=== PATIENT | male | born 1950 | race Caucasian/White ===

== ENCOUNTER 2017-08-17 11:11 | Observation (INO) | payer MEDICARE, OTHER ==
[~2017-08-17] VITALS: Ht 167.6 cm; Wt 122.2 kg
[2017-08-17] VITALS (8 sets, daily range): BP systolic 111–151; BP diastolic 73–95; PULSE 89–131; RESP 16–20; TEMP 98.4–99; O2SAT 93–95
[~2017-08-17 11:11] MED LIST: APIX5TAB PO; ATOR20TA15 PO; CARBSOL EACH EYE; COZA100T PO; DILT0.05 PO; DOXA1TAB35 PO; HYDR25TA5 PO; LOSA100T PO; MULT10CA PO; SAW450CA2 PO; TRAV0.00 EACH EYE
[2017-08-17] MEDS ORDERED: LACTATED RINGER'S 1000 ML IV PRN (12:00)
[2017-08-17] MEDS ORDERED: CHLORHEXIDINE GLUCONATE 2 % 1 PACK (2 CLOTHS) TOPICAL PRN (12:00)
[2017-08-17] MEDS ORDERED: POVIDONE IODINE 5% (ANTISEPSIS KIT) 4 APPLICATIONS EACH NARE PRN (12:00)
[2017-08-17] MEDS ORDERED: SODIUM CHLORID 0.9% 500 ML IV PRN (12:00)
[2017-08-17] MEDS ORDERED: NS 1000 ML IV SCH (12:00)
[2017-08-17] MEDS ORDERED: MUPIROCIN 2% OINT 1 APPLIC/GM SYR NASAL SCH (12:00)
[2017-08-17] MEDS ORDERED: METOPROLOL TARTRATE 25 MG TAB PO PRN (12:00)
[2017-08-17] MEDS ORDERED: ceFAZolin 2 GM PREMIX 50 ML IV SCH (12:00)
[2017-08-17] MEDS ORDERED: INSULIN HUMAN REGULAR 1,000 UNITS/10 ML VIAL SQ PRN (12:00)
[2017-08-17] MEDS ORDERED: VANCOMYCIN 1000 MG/NS 250 ML IV SCH ×2 (12:00)
[2017-08-17 12:13] LABS: BASOPHIL % 0.6 % (0.0-2.0); EOSINOPHIL # 0.1 TH/MM3 (0-0.4); EOSINOPHIL % 1.9 % (0.0-4.0); HEMATOCRIT 51.7 % (39.0-51.0); HEMO FLAGS DIFF FINAL; LYMPH % 43.7 % (9.0-44.0); LYMPHOCYTE # 3.1 TH/MM3 (1.0-4.8); MEAN CELL VOLUME 96.1 FL (80.0-100.0); MEAN CORPUSCULAR HEMOGLOBIN 32.1 PG (27.0-34.0); MEAN CORPUSCULAR HGB CONC 33.4 % (32.0-36.0); NEUT % 42.8 % (16.0-70.0); PLATELET COUNT 174 TH/MM3 (150-450); RED BLOOD COUNT 5.39 MIL/MM3 (4.50-5.90); RED CELL DISTRIBUTION WIDTH 14.2 % (11.6-17.2); WHITE BLOOD COUNT 7.1 TH/MM3 (4.0-11.0)
[2017-08-17 12:23] LABS: INTERNATIONAL NORMALIZED RATIO 1.1 RATIO; PROTHROMBIN TIME - PATIENT 11.4 SEC (9.8-11.6)
[2017-08-17 12:35] LABS: BICARBONATE 29.9 MEQ/L (21.0-32.0); POTASSIUM 3.9 MEQ/L (3.5-5.1)
[2017-08-17] MEDS ORDERED: VANCOMYCIN 500 MG VIAL ONE (12:53)
[2017-08-17] MEDS ORDERED: LIDOCAINE HCL 2% 50 ML VIAL ONE (12:53)
--- NOTE | 2017-08-17 14:43 | CATHPROC ---
[facility] HIS Report Study Information Study Number Admission Scheduled Start Study Start [id number] Aug 17 2017 11:11AM 08/17/2017 Aug 17 2017 12:28PM [place] Service Cardiac Pacer/ICD Admit Source Facility Department Other [facility] Physician and Clinical Staff Initial Blair Alonso Application Software Developer Grabiel Rao,RT(R) Application Software Developer Carly Cutler,HEEL SEWER TECH2 Other Anesthesia, ADOLESCENT COUNSELOR Recorder Ivonne Leblanc,GEN Recorder Francisca Locke RN Scrub Gisele Mcmahan,RT(R) TECH2 Procedures Performed Procedure Location (Site) Vessel Name Lead Insertion Venogram Subclav. Vein (Lft Subclavian Vein Equipment Time Manager Produce Description Size Mfg Part Number Used/Scraped [id number] 12:52 MEDLINE INDUSTRIES SUTURE, STRIP PLUS 1/2" * Used *[id number] 12:52 MEDLINE PACER ADHESIVE, MASTISOL 2/3CC 2/3CC 0523-48 Used 12:52 MEDLINE PACER LANDON, LIMB * 2530 *[id number] Used [id number] 12:52 MEDLINE PACER PACK, PACER CUSTOM * Used *[id number] 12:52 MEDLINE PACER PEN, SKIN DUAL W/ RULER * Used *[id number] 13:49 [employer] MEDICAL PACER SAFE SHEATH, FR6, 13CM FR 6 [id number] Used 13:47 [employer] MEDICAL PACER SAFE SHEATH, FR7, 13CM FR 7 [id number] Used PROBE COVER, STERILE [id number] 12:52 [employer] * Used ULTRASOUND W/ GEL *[id number] PROBE COVER, STERILE [id number] 13:34 [employer] * Used ULTRASOUND W/ GEL *[id number] 13:13 Needle Sponge Count 2 22 Used 13:12 Needle Sponge Count 3 3 Used 13:13 Needle Sponge Count 30 1 Used 13:50 Needle Sponge Count 4 4 Used 13:44 NYCOMED OMNIPAQUE, 350 MG, 50ML 50ML [id number] Used [id number] *[id number] [id number] *[id number] SUTURE, 0 SILK [CT1] (CO21D), 8pk SUTURE, 3-0 MONOCRYL [SH] (Y316H) SUTURE, 3-0 MONOCRYL [SH] (Y316H) SUTURE, 4-0 MONOCRYL [PS2] (Y496G) SUTURE, 4-0 MONOCRYL [PS2] (Y496G) [id number] 12:52 [employer],WARM AIR CCL * Used *[id number] LEAD, TENDRIL STS 8TC 13:48 [employer] 58CM 8TC/58CM Used 58CM 08:19 [facility] [employer] PACEMAKER, ASSURITY SSIR SSIR [id number] Used [facility] PAD, ELECTROSURGICAL 12:52 * [id number] *[id number] Used SURGICAL GROUNDING ORANGE [id number] 12:52 [employer] MEDICAL ARTURO. / * Used *[id number] Equipment Model, Serial, Lot Number and Expiration Data Description Model Number Serial Number Lot Number Expiration Date LEAD, TENDRIL STS 2087TC 58CM 8TC-58 [id number] 06-11-2020 PACEMAKER, ASSURITY SSIR [id number] 11-09-2018 History: Allergies Allergy Reaction No Known Allergies ANGIE Inhibitors History: Risk Factors Family History of Hypertension Dyslipidemia Previous MD Previous Heart Failure Premature CAD Yes Yes No No No Prior Valve Prior PCI Prior CABG Surgery No No No Cerebrovascular Peripheral Artery Chronic Lung On Dialysis Diabetes Disease Disease Disease No No No No No History: Stress Tests Stress or Imaging Studies Performed No History: Arrhythmias Selection Items Atrial fibrillation History: Other Current Smoker Method Packs a Day Years Used Pack Years Yes Cigarettes 1 25 25 Labs Hgb (g/dl) Hct (%) RBC (MIL/MM3) WBC (l/cumm) Platelets (thousands) 11.60-17.00 35.00-51.00 4.00-5.90 4.00-11.00 150.00-450.00 17.0 51 7.1 5.3 174 Glucose (mg/dl) BUN (mg/dl) Creatinine (mg/dl) BUN:Creatinine (1:x) 74.00-106.00 7.00-18.00 0.50-1.30 10.00-20.00 106 15 0.7 21.4 Na (meq/l) K (meq/l) Cl (meq/l) CO2 (mmol/L) Ca (mg/dl) 136.00-145.00 3.50-5.10 98.00-107.00 21.00-32.00 8.50-10.10 141 3.9 104 29.9 9.2 PT (sec) INR (PTT:PT) 9.80-11.60 0.90-1.10 11.4 1.1 Medication Medication Total Dose (Bolus/Oral) Medication Total Dosage/Unit 2% XYLOCAINE 50 mL Medications (Bolus/Oral) Medication Time Given Dosage/Unit Administered By Reason 2% XYLOCAINE 08/17/2017 1:31:37 PM 50 mL Blair Alonso 50 mL 2% XYLOCAINE given in lab by Blair Alonso in Left shoulder via Subcutaneous. Ordered by Blair Wise. Medication (Drip) Medication Time Given Dosage/Unit Concentration/Unit Diluent (ml) Solution ANCEF 08/17/2017 12:56:00 PM 2 g 2 g ANCEF given in lab by Anesthesia, ADOLESCENT COUNSELOR via Peripheral IV. Ordered by Blair Alonso. Reason: As per physicians verbal order. VANCOMYCIN DRIP 08/17/2017 12:56:53 PM 1 g 1 g VANCOMYCIN DRIP given in lab by Anesthesia, ADOLESCENT COUNSELOR via Peripheral IV. Ordered by Blair Alonso. Reason: As per physicians verbal order. Initial Case Assessment Cardiovascular HR Rhythm NIBP Chest Pain 107 a-fib 151/103 0 Edema Present Skin color Skin None Normal Warm Dry Circulatory - Right Pulses Dorsalis Pedis 1 Scale (0,1,2,3,4,d) Circulatory - Left Pulses Dorsalis Pedis 1 Scale (0,1,2,3,4,d) Circulatory - Lower Extremities Color Lower Right Color Lower Left Normal Normal Neurological State Oriented to time-place- Alert Moves all extremities person Respiration - General Respiration Rate SpO2 (%) (B/min) 14 95 Chronological Log Time Study Chronological Log 12:40:28 Patient arrived via Bed. 12:40:29 Patient Name, D.O.B, / Armband Verified By R.N. 12:40:30 Consent signed by the physician and the patient and verified by the [employer] [facility] staff. 12:40:34 Pre-op and post- op instructions given; patient acknowledges understanding of instructions. 12:40:44 Patient has been NPO for More than 6Hrs. 12:41:03 History and physical on the chart. 12:42:36 Presedation assessment performed by [employer] RN. 12:42:45 Skin Breakdown- none per pt. 12:42:54 Patient Warmer Placed on the Table. 12:42:56 Levar Prominences Protected 12:43:00 A # 20 IV was noted in the Forearm (left). Grade = 0 0.9% NS @ KVO. 12:43:01 A # 20 IV was noted in the Antecubital (right). Grade = 0 0.9% NS at KVO. 12:44:19 2% CHLORHEXIDINE GLUCONATE WASH AND NASAL SWIPE DONE PRIOR TO PROCEDURE. 12:46:25 Disposable Defibrillator Pads Placed On Patient. 12:46:49 Bovie ground pad applied to: right thigh 12:47:40 Anesthesia at bedside. Assumes care of patient. 12:55:11 Verbal Stimulation=2 Physical Stimulation=2 Airway=2 Respiration=2 TOTAL=8. (0=absent, 1=li mited, 2=present) Assessment: Initial Case, KY=728 BPM, Rhythm=a-fib, KMJS=456/103 mmhg, Chest Pain=0, Edema=None , Color=Normal, Skin = Warm, Dry Right Pulses: Noah Ped=1 Left Pulses: Noah Ped=1 12:55:26 Lower Right Extremities: Color=Normal Lower Left Extremities: Color=Normal Neurological: State=Alert, Ox3, GUALLPA Respiration: Resp=14 B/min, SpO2=95 % 2 g ANCEF given in lab by Anesthesia, ADOLESCENT COUNSELOR via Peripheral IV. Ordered by Blair Alonso. Reas on: As per 12:56:00 physicians verbal order. 12:56:09 Table restraints applied according to hospital policy 1 g VANCOMYCIN DRIP given in lab by Anesthesia, ADOLESCENT COUNSELOR via Peripheral IV. Ordered by Lesa Alonso. Reason: As 12:56:53 per physicians verbal order. 12:58:26 Reference ECG taken First Sponge And Instrument Count Done by Gisele Mcmahan, RT(R) TECH2. 13:02:54 Hypo's: 4, Sponges: 30, Bovie/scratch: 2 Sutures: 12, Blades: 2, Instruments: 26, Syveck Patches: 1 verified by BEL 13:10:22 Anesthesiologist, Dr. Cat at bedside present for intubation 13:13:25 MD arrived. 13:16:15 Bilateral Upper Chest Prepped Times Two. Time Out. Correct patient, procedure, procedure equipment, site and side verified with physicia n present. Time 13:29:55 concurred by MD, individual staff and ADOLESCENT COUNSELOR. Time Out #2 - Consents verified, patient in correct position, all results are labled and displa yed, safety precautions 13:30:21 taken, antibiotics administered. Time out concurred by MD, individual staff and ADOLESCENT COUNSELOR in procedu re 13:30:47 Case Start 50 mL 2% XYLOCAINE given in lab by Blair Alonso in Left shoulder via Subcutaneous. Ordered by Celsete, 13:31:37 Humayun. 13:42:55 The Subclav. Vein (Lft was manually injected with 15 cc's of contrast. OMNIPAQUE, 350 MG, 5 0ML 50ML used. 13:45:18 Vascular access was obtained in the Subclav. Vein (Lft. 13:46:25 A SAFE SHEATH, FR6, 13CM FR 6 was advanced into the Subclav. Vein (Lft using the Modified S eldinger technique. 13:49:21 A pocket was created at the Lt. upper chest. 13:50:55 Pocket flushed with antibiotic solution 13:52:53 A LEAD, TENDRIL STS 2088TC 58CM 58CM was inserted and positioned in the RV. 13:53:54 Lead placement verified under fluoroscopy 13:58:31 The RV lead was sutured to the fascia. 14:01:52 An implantable was connected and placed in the pocket: Assurity MRI [id number] SSIR [id number] . 14:06:02 Pocket flushed with antibiotic solution 14:06:33 The RV lead impedance and threshold being tested. Second Sponge And Instrument Count Done by Gisele Mcmahan, RT(R) TECH2. 14:12:06 Hypo's: 4, Sponges: 30, Bovie/scratch: 2 Sutures: 12, Blades: 2, Instruments: 26, Syveck Patches: 1 verified by BEL 14:14:36 The pocket was closed. 14:14:41 Implant Procedure was performed. 14:15:05 A PPM Implant . (Single) 14:16:21 Implantable Device card placed in patient's chart. 14:16:58 DOCU called with a bed assignment. Informed pt going to PACU first. Spoke with Jacinta 14:17:43 Bedside Report will be given. 14:22:18 PACU called. Spoke to Gisele. 14:25:26 Sterile dressing applied to site Final Sponge And Instrument Count Done by Gisele Mcmahan, RT(R) TECH2. 14:27:18 Hypo's: 4, Sponges: 30, Bovie/scratch: 2 Sutures: 12, Blades: 2, Instruments: 26, Syveck Patches: 1 verified by BEL 14:31:58 Extubated by Anesthesia 14:33:50 Case End 14:34:23 No case complications noted. 14:34:26 Cine recording checked. 14:34:39 Defibrillator and ground pads removed. Skin intact. 14:37:58 Patient moved to stretcher 14:39:44 A sling was placed on the affected arm. 14:42:22 Transported to PACU with anesthesia present in stable condition on portable oxygen and jorge luis tors. End Study - Contrast Media Used In Study Contrast Total Opened (mL) Total Used (mL) Total Wasted (mL) Omnipaque 50 15 35 End Study - Maximum Contrast Load Max Contrast Load (mL) 872.7 End Study - Radiation Exposure Fluoro Time (minutes) 5.8 End Study - Patient Disposition Complications Transferred To Interventional Outcome No Telemetry Bed successful
[2017-08-17] MEDS ORDERED: DO NOT ADM ANY ANTICOAGULANT DRUGS PRN (14:49)
[2017-08-17] MEDS ORDERED: ZOLPIDEM TARTRATE 5 MG TAB PO PRN (15:15)
[2017-08-17] MEDS ORDERED: ONDANSETRON HCL 4 MG/2 ML VIAL IV PUSH PRN (15:15)
[2017-08-17] MEDS ORDERED: MAGNESIUM HYDROXIDE SUSP 30 ML CUP PO PRN (15:15)
[2017-08-17] MEDS ORDERED: ACETAMINOPHEN/CODEINE 300 MG/30 MG TAB PO PRN (15:15)
[2017-08-17] MEDS ORDERED: IOHEXOL 350 MG/ML 50 ML BTL (for Cath Lab) OTHER ONE (16:03)
--- NOTE | 2017-08-17 16:13 | RADRPT ---
EXAM DATE/TIME: 08/17/2017 15:45 [place] COMPARISON: No previous studies available for comparison. INDICATIONS : Post pacemaker placement. Evaluate for pneumothorax. MEDICAL HISTORY : Hypertension. Atrial fibrillation. Diabetes. SURGICAL HISTORY : Pacemaker. ENCOUNTER: Initial ACUITY: 1 day PAIN SCORE: 0/10 LOCATION: Bilateral chest FINDINGS: There is a single lead pacemaker with lead projecting over the right ventricle. Diffuse interstitial prominence with linear peripheral opacities in the right midlung zone and left lower lung zone. No si gnificant pneumothorax. Cardiac silhouette is mildly enlarged. Bony thorax is intact. CONCLUSION: 1. Single lead pacemaker with lead projecting over the right ventricle. No significant pneumothorax. 2. Linear airspace disease in the right mid and left lower lung zones likely reflect atelectasis. 3. Mild positive fluid balance. Anthony Hare MD on August 17, 2017 at 16:10 Board Certified Radiologist. This report was verified electronically.
--- NOTE | 2017-08-17 16:42 | MP ---
cc: BLAIR ALONSO M.D., JEFFREY DATE OF SURGERY 08/17/2017 This is a pacemaker implantation note, single chamber. INDICATION Asystole, 11-second pauses, sick sinus syndrome, atrial fibrillation. CONSENT Full informed consent was obtained prior to the procedure. The risks of , bleeding, myocardial infarction, pneumothorax, foreseen and unforeseen complications were reviewed. The patient fully appeared to understand the risks. PROCEDURE The patient prepped and draped in the usual manner. The left infraclavicular area was carefully infiltrated with lidocaine. A left subclavian angiogram was carried out using contrast ultrasound, had great difficulty identifying the vein given the patient's large barrel-shaped chest. Following this the pacemaker pocket was fashioned using blunt sharp and cautery dissection. The introducer sheath was placed in venous circulation and a pacemaker lead was passed into the right ventricular apex. A helical screw was advanced into the myocardium. Excellent pacing sensing parameters were noted. The lead was sewn down to pectoralis fascia and then the pulse generator was connected to the to the lead, set screw was tightened but not over tightened. The pulse generator was sewn down to pectoralis fascia. The pocket was flushed with vancomycin solution on several occasions. The pocket was closed in three layers. CONCLUSION Successful placement of single chamber pacemaker. Anesthesia was given as per the Anesthesia Department. Angiogram for the left subclavian vein was carried out using contrast. Blair Alonso MD, FRCP,[facility] DELFINOJ/DELROY /3:05 PM /4:26 PM
[2017-08-17] MEDS ORDERED: FUROSEMIDE 20 MG/2 ML VIAL IV PUSH ONE (17:45)
[2017-08-17] MEDS: ceFAZolin 2 GM PREMIX 50 ML IV SCH (20:08)
[2017-08-17] MEDS ORDERED: DILTIAZEM HCL 25 MG/5 ML (Bolus) IV PUSH PRN (21:00)
[2017-08-17] MEDS ORDERED: DILTIAZEM 125 MG/NS 100 ML IV PRN ×2 (21:00)
[2017-08-17] MEDS ORDERED: ATORVASTATIN 20 MG TAB PO SCH (21:30)
[2017-08-17] MEDS ORDERED: LATANOPROST 0.005% OPHT SOLN 2.5 ML BTL EACH EYE SCH (22:00)
[2017-08-18] VITALS (16 sets, daily range): BP systolic 106–124; BP diastolic 57–82; PULSE 70–101; RESP 16–20; TEMP 98.3–98.7; O2SAT 90–94
[2017-08-18] MEDS ORDERED: VANCOMYCIN INJ 1,000 MG in SODIUM CHLOR 0.9% 250 ML INJ 250 ML IV ONE (01:00)
[2017-08-18] MEDS: ceFAZolin 2 GM PREMIX 50 ML IV SCH ×2 (03:17→12:14)
--- NOTE | 2017-08-18 07:46 | PD.CARD.PN ---
Subjective Subjective Remarks Afib RVR overnight, some hypoxia (Ruby Sweet) Objective Medications Current Medications Medications (Trade) Dose Ordered Sig/Kamran Route Start Time Stop Time Status Last Admin Lactated Ringer's 1,000 ml @ 30 mls/hr Q24H PRN IV 08/17/17 12:00 08/20/17 11:59 Sodium Chloride 500 ml @ 30 mls/hr [id number] PRN IV 08/17/17 12:00 08/20/17 11:59 (Lopressor) 25 mg ACETYLENE BURNER PRN PO 08/17/17 12:00 08/20/17 11:59 (Betadine 5% Antisepsis Kit) 1 applic ACETYLENE BURNER PRN EACH NARE 08/17/17 12:00 08/20/17 11:59 08/17/17 13:57 (Chlorhexidine 2% Cloth) 3 pack ACETYLENE BURNER PRN TOPICAL 08/17/17 12:00 08/20/17 11:59 08/17/17 13:57 (NovoLIN R INJ) See Protocol Table ... ACETYLENE BURNER PRN SQ 08/17/17 12:00 08/20/17 11:59 Sodium Chloride 1,000 ml @ 30 mls/hr Q24H IV 08/17/17 12:00 Cefazolin Sodium/ Dextrose 50 ml @ 100 mls/hr ACETYLENE BURNER IV 08/17/17 12:00 08/20/17 11:59 Vancomycin HCl 1000 mg/Sodium Chloride 250 ml @ 250 mls/hr ACETYLENE BURNER IV 08/17/17 12:00 08/20/17 11:59 (Bactroban Nasal 2% Oint) 1 applic ACETYLENE BURNER NASAL 08/17/17 12:00 08/20/17 11:59 Cefazolin Sodium/ Dextrose 50 ml @ 100 mls/hr Q8H IV 08/17/17 20:00 08/18/17 12:29 08/18/17 03:17 (Ambien) 5 mg HS PRN PO 08/17/17 15:15 (Milk Of Magnesia Liq) 30 ml Q6H PRN PO 08/17/17 15:15 (Zofran Inj) 4 mg Q4H PRN IV PUSH 08/17/17 15:15 (Tylenol-Codeine #3) 1 tab Q4H PRN PO 08/17/17 15:15 Miscellaneous Information ALL NURSING DEPARTME... UNSCH PRN .XX 08/17/17 14:49 08/18/17 14:48 Diltiazem HCl 125 mg/Sodium Chloride 125 ml @ 5 mls/hr TITRATE PRN IV 08/17/17 21:00 08/17/17 21:43 (Cardizem Inj) 10 mg BOLUS PRN IV PUSH 08/17/17 21:00 08/18/17 20:59 08/17/17 21:43 (Lipitor) 20 mg HS PO 08/17/17 21:30 08/17/17 21:53 (Cardura) 2 mg DAILY PO 08/18/17 09:00 (Eliquis) 5 mg BID PO 08/18/17 09:00 (Cozaar) 50 mg DAILY PO 08/18/17 09:00 (Xalatan 0.005% Opth Soln) 1 drop HS EACH EYE 08/17/17 22:00 08/17/17 23:00 (Microzide) 12.5 mg DAILY PO 08/18/17 09:00 (Ocuvite) 1 tab DAILY PO 08/18/17 09:00 Vital Signs / I&O Vital Signs Date Time Temp Pulse Resp B/P (MAP) Pulse Ox O2 Delivery O2 Flow Rate FiO2 08/18/17 07:00 87 08/18/17 06:00 82 08/18/17 05:06 81 121/71 08/18/17 05:00 95 08/18/17 04:00 88 08/18/17 03:15 Nasal Cannula 2.00 08/18/17 03:10 88 Room Air 08/18/17 03:10 98.3 84 16 109/68 (82) 93 08/18/17 03:00 101 08/18/17 02:00 85 08/18/17 01:00 75 08/18/17 00:20 98 110/71 08/18/17 00:00 88 08/17/17 23:00 93 Nasal Cannula 2.00 08/17/17 23:00 89 08/17/17 23:00 98.6 89 16 113/73 (86) 93 08/17/17 22:15 97 110/72 08/17/17 22:04 98 104/71 08/17/17 22:00 94 08/17/17 22:00 Nasal Cannula 2.00 08/17/17 21:43 129 124/77 08/17/17 21:00 127 08/17/17 20:00 118 08/17/17 19:30 98.4 123 18 130/83 (99) 94 08/17/17 19:30 94 Nasal Cannula 3.00 08/17/17 19:00 131 08/17/17 15:45 98.6 108 20 111/85 (94) 95 08/17/17 15:15 109 15 126/74 (91) 94 Nasal Cannula 4 08/17/17 15:00 104 15 125/74 (91) 91 Nasal Cannula 4 08/17/17 14:48 97.5 137 15 139/68 (91) 91 Nasal Cannula 4 08/17/17 11:52 99.0 95 18 151/95 (113) 93 I/O 08/17/17 08/17/17 08/17/17 08/18/17 08/18/17 08/18/17 07:00 15:00 23:00 07:00 15:00 23:00 Intake Total 350 ml 577 ml Output Total 1100 ml 425 ml Balance -750 ml 152 ml Intake Oral 300 ml 240 ml IV Total 50 ml 337 ml Output Urine Total 1100 ml 425 ml # Bowel Movements 0 Physical Exam GENERAL obese male, no distress SKIN: Warm and dry. HEAD: Normocephalic. EYES: No scleral icterus. No injection or drainage. NECK: Supple, trachea midline. 3 CM JVD CARDIOVASCULAR: Irreg irreg, steri strips C/D/I RESPIRATORY: Breath sounds equal bilaterally. No accessory muscle use. GASTROINTESTINAL: Abdomen soft, non-tender, nondistended. MUSCULOSKELETAL: No cyanosis, BACK: Nontender without obvious deformity. No CVA tenderness. Current Medications Medications (Trade) Dose Ordered Sig/Kamran Route Start Time Stop Time Status Last Admin Lactated Ringer's 1,000 ml @ 30 mls/hr Q24H PRN IV 08/17/17 12:00 08/20/17 11:59 Sodium Chloride 500 ml @ 30 mls/hr [id number] PRN IV 08/17/17 12:00 08/20/17 11:59 (Lopressor) 25 mg ACETYLENE BURNER PRN PO 08/17/17 12:00 08/20/17 11:59 (Betadine 5% Antisepsis Kit) 1 applic ACETYLENE BURNER PRN EACH NARE 08/17/17 12:00 08/20/17 11:59 08/17/17 13:57 (Chlorhexidine 2% Cloth) 3 pack ACETYLENE BURNER PRN TOPICAL 08/17/17 12:00 08/20/17 11:59 08/17/17 13:57 (NovoLIN R INJ) See Protocol Table ... ACETYLENE BURNER PRN SQ 08/17/17 12:00 08/20/17 11:59 Sodium Chloride 1,000 ml @ 30 mls/hr Q24H IV 08/17/17 12:00 Cefazolin Sodium/ Dextrose 50 ml @ 100 mls/hr ACETYLENE BURNER IV 08/17/17 12:00 08/20/17 11:59 Vancomycin HCl 1000 mg/Sodium Chloride 250 ml @ 250 mls/hr ACETYLENE BURNER IV 08/17/17 12:00 08/20/17 11:59 (Bactroban Nasal 2% Oint) 1 applic ACETYLENE BURNER NASAL 08/17/17 12:00 08/20/17 11:59 Cefazolin Sodium/ Dextrose 50 ml @ 100 mls/hr Q8H IV 08/17/17 20:00 08/18/17 12:29 08/18/17 03:17 (Ambien) 5 mg HS PRN PO 08/17/17 15:15 (Milk Of Magnesia Liq) 30 ml Q6H PRN PO 08/17/17 15:15 (Zofran Inj) 4 mg Q4H PRN IV PUSH 08/17/17 15:15 (Tylenol-Codeine #3) 1 tab Q4H PRN PO 08/17/17 15:15 Miscellaneous Information ALL NURSING DEPARTME... UNSCH PRN .XX 08/17/17 14:49 08/18/17 14:48 Diltiazem HCl 125 mg/Sodium Chloride 125 ml @ 5 mls/hr TITRATE PRN IV 08/17/17 21:00 08/17/17 21:43 (Cardizem Inj) 10 mg BOLUS PRN IV PUSH 08/17/17 21:00 08/18/17 20:59 08/17/17 21:43 (Lipitor) 20 mg HS PO 08/17/17 21:30 08/17/17 21:53 (Cardura) 2 mg DAILY PO 08/18/17 09:00 (Eliquis) 5 mg BID PO 08/18/17 09:00 (Cozaar) 50 mg DAILY PO 08/18/17 09:00 (Xalatan 0.005% Opth Soln) 1 drop HS EACH EYE 08/17/17 22:00 08/17/17 23:00 (Microzide) 12.5 mg DAILY PO 08/18/17 09:00 (Ocuvite) 1 tab DAILY PO 08/18/17 09:00 Laboratory Laboratory Tests Test 08/17/17 11:48 White Blood Count 7.1 TH/MM3 Red Blood Count 5.39 MIL/MM3 Hemoglobin 17.3 GM/DL Hematocrit 51.7 % Mean Corpuscular Volume 96.1 FL Mean Corpuscular Hemoglobin 32.1 PG Mean Corpuscular Hemoglobin Concent 33.4 % Red Cell Distribution Width 14.2 % Platelet Count 174 TH/MM3 Mean Platelet Volume 8.4 FL Neutrophils (%) (Auto) 42.8 % Lymphocytes (%) (Auto) 43.7 % Monocytes (%) (Auto) 11.0 % Eosinophils (%) (Auto) 1.9 % Basophils (%) (Auto) 0.6 % Neutrophils # (Auto) 3.0 TH/MM3 Lymphocytes # (Auto) 3.1 TH/MM3 Monocytes # (Auto) 0.8 TH/MM3 Eosinophils # (Auto) 0.1 TH/MM3 Basophils # (Auto) 0.0 TH/MM3 CBC Comment DIFF FINAL Differential Comment Prothrombin Time 11.4 SEC Prothromb Time International Ratio 1.1 RATIO Blood Urea Nitrogen 15 MG/DL Creatinine 0.77 MG/DL Random Glucose 106 MG/DL Calcium Level 9.2 MG/DL Sodium Level 141 MEQ/L Potassium Level 3.9 MEQ/L Chloride Level 104 MEQ/L Carbon Dioxide Level 29.9 MEQ/L Anion Gap 7 MEQ/L Estimat Glomerular Filtration Rate 101 ML/MIN (Ruby Sweet) Assessment and Plan Assessment and Plan SSS s/p PPM Atrial fibrillation with RVR Acute diastolic CHF exacerbation Respiratory insufficiency PLAN Transition to cardizem PO Lasix 20 mg IV now Hold Eliquis, give first dose tonight Stop HCTZ Discharge this afternoon pending clinical status The patient was seen and evaluate by Dr sutton who completed face to face encounter, physical exam and participated in evaluation and management. (Ruby Sweet) Assessment and Plan The exam, history, and the medical decision-making described in the above note were completed with the assistance of the mid-level provider. I reviewed and agree with the findings presented. I attest that I had a [id number] encounter with the patient on the same day, and personally performed and documented my assessment and findings in the medical record. Ok to d/c. (Blair Alonso MD) Ruby Sweet Aug 18, 2017 07:46 Blair Alonso MD Aug 18, 2017 14:19
[2017-08-18] MEDS ORDERED: DILTIAZEM HCL 60 MG TAB PO ONE (08:15)
[2017-08-18] MEDS ORDERED: FUROSEMIDE 20 MG/2 ML VIAL IV PUSH ONE (08:15)
[2017-08-18] MEDS ORDERED: LOSARTAN 50 MG TAB PO SCH (09:00)
[2017-08-18] MEDS ORDERED: DOXAZOSIN MESYLATE 2 MG TAB PO SCH (09:00)
[2017-08-18] MEDS ORDERED: HYDROCHLOROTHIAZIDE 12.5 MG CAP PO SCH (09:00)
[2017-08-18] MEDS ORDERED: MULTIVITAMIN-OPHTHALMIC 1 TAB PO SCH (09:00)
[2017-08-18] MEDS ORDERED: FURO20TA PO (14:24)
[2017-08-18] MEDS ORDERED: FURO1TAB62 PO (14:51)
--- NOTE | 2017-08-18 17:21 | EKG ---
Date Performed: 08/17/2017 Time Performed: 12:09:34 PTAGE: 67 years EKG: Atrial fibrillation. Rightward axis Poor R wave progression - cannot rule out anteroseptal infarct Inferior T wave changes are nonspecific Low QRS voltages in limb leads Can not rule out anter oseptal infarct-age undeterminate. Abnormal ECG PREVIOUS TRACING : 04/16/2009 21.51 DOCTOR: Hesham Adler Interpretating Date/Time 08/18/2017 17:20:53
--- NOTE | 2017-08-18 17:22 | EKG ---
Date Performed: 08/17/2017 Time Performed: 20:00:58 PTAGE: 67 years EKG: Atrial fibrillation with rapid ventricular response Indeterminate axis Poor R wave progress ion. Inferior T wave changes are nonspecific Low QRS voltages in limb leads Abnormal ECG PREVIOUS TRACING : 08/17/2017 12.09 DOCTOR: Hesham Adler Interpretating Date/Time 08/18/2017 17:21:32
[2017-08-18] MEDS ORDERED: APIXABAN 5 MG TABLET PO SCH (21:00)
== END 2017-08-18 15:40 | disposition home or self-care (01) ==
LOC: HDOC 11:11 → HDIC 11:12 → HDOC 16:00 → HCPC 16:02
PROVIDERS: ADMIT Internal Medicine Cardiovascular Disease; ATTEND Internal Medicine Cardiovascular Disease
DX: I49.5 Sick sinus syndrome (principal); I48.91 Unspecified atrial fibrillation; R73.03 Prediabetes; E78.5 Hyperlipidemia, unspecified; G47.30 Sleep apnea, unspecified; F17.210 Nicotine dependence, cigarettes, uncomplicated; E66.01 Morbid (severe) obesity due to excess calories; Z68.41 Body mass index [BMI] 40.0-44.9, adult
CPT/HCPCS: 00530; 33207; 71010; 80048; 85025; 85610; 93005; C1779; C1786; G0378; J0690; J1940; J3370; J7050; Q9967